=== PATIENT | female | born 1965 | race American Indian/Alaskan Native ===

== ENCOUNTER 2017-05-09 16:16 | Emergency (ER) | payer OTHER ==
[2017-05-09 16:39] VITALS: BP 136/79; RESP 18
--- NOTE | 2017-05-09 16:56 | C.PDOC ---
Chief Complaint (Nursing): Chest Pain Past Medical History Vital Signs: Last Vital Signs Temp 99.6 F 05/09/17 16:36 Pulse 85 05/09/17 16:36 Resp 18 05/09/17 16:36 BP 136/79 05/09/17 16:36 Pulse Ox 99 05/09/17 16:36 - Medical History PMH: Asthma, Hypercholesterolemia Family History: States: Unknown Family Hx - Social History Hx Alcohol Use: No Hx Substance Use: No ED Course And Treatment O2 Sat by Pulse Oximetry: 99 Disposition - Disposition
[2017-05-09] MEDS ORDERED: Aluminum Hydroxide/Magnesium Hydroxide Susp (30 mL) PO STA (17:11)
--- NOTE | 2017-05-09 17:11 | C.PDOC ---
History Of Present Illness 52 Y/O FEMALE PRESENTS TO ED WITH C/O NEW ONSET LEFT SIDED CHEST / EPIGASTRIC PAIN SINCE LAST NIGHT. PT REPORTS PAIN IS INTERMITTENT, WITH RADIATION OF PAIN TO THE MID-BACK. NO ASSOCIATED WITH EATING. DENIES FEVER, CHILLS, SOB, NAUSEA, VOMITING, DIZZINESS. PT STATES COULD BE DUE TO "BAD FOOD" SHE ATE RECENTLY. PT REPORTS TAKING ZANTAC AND MOTRIN LAST NIGHT W/O RELIEF. Time Seen by Provider: 05/09/17 16:51 Chief Complaint (Nursing): Chest Pain History Per: Patient History/Exam Limitations: no limitations Current Symptoms Are (Timing): Still Present Location Of Pain/Discomfort: Epigastric Radiation Of Pain To:: Back Quality Of Discomfort: "Pain" Associated Symptoms: Back Pain. denies: Fever, Nausea, Vomiting, Urinary Symptoms Recent travel outside of the [place] States: No Past Medical History Reviewed: Historical Data, Nursing Documentation, Vital Signs Vital Signs: Last Vital Signs Temp 99.6 F 05/09/17 16:36 Pulse 80 05/09/17 16:45 Resp 18 05/09/17 16:36 BP 136/79 05/09/17 16:36 Pulse Ox 99 05/09/17 18:50 - Medical History PMH: Asthma, Hypercholesterolemia Family History: States: Unknown Family Hx - Social History Hx Alcohol Use: No Hx Substance Use: No Review Of Systems Except As Marked, All Systems Reviewed And Found Negative. Constitutional: Negative for: Fever, Chills Cardiovascular: Positive for: Chest Pain. Negative for: Palpitations Respiratory: Negative for: Cough, Shortness of Breath, Wheezing Gastrointestinal: Positive for: Abdominal Pain. Negative for: Nausea, Vomiting Skin: Negative for: Rash Physical Exam - Physical Exam Appears: Non-toxic, No Acute Distress Skin: Warm, Dry, No Rash Head: Atraumatic, Normacephalic Oral Mucosa: Moist Chest: Symmetrical Cardiovascular: Rhythm Regular Respiratory: Normal Breath Sounds, No Accessory Muscle Use, No Rales, No Rhonchi , No Wheezing Gastrointestinal/Abdominal: Soft, No Tenderness, No Guarding, No Rebound Back: Normal Inspection Extremity: Normal ROM, Capillary Refill (< 2 SEC.) Neurological/Psych: Oriented x3, Normal Speech, Normal Cognition ED Course And Treatment - Laboratory Results Result Diagrams: 05/09/17 17:19 05/09/17 17:19 ECG: Interpreted By Me ECG Rhythm: Sinus Rhythm ECG Interpretation: Normal Rate From EC (BPM) O2 Sat by Pulse Oximetry: 99 (RA.) Pulse Ox Interpretation: Normal - Radiology CXR: Interpreted by Me CXR Interpretation: Yes: No Acute Disease - CT Scan/US US RUQ ABDOMEN Other Rad Studies (CT/US): Read By Radiologist, Radiology Report Reviewed CT/US Interpretation: FINDINGS: LIVER: Measures cm in length. Normal echogenicity of the liver parenchyma. No mass. No intrahepatic bile duct dilatation. GALLBLADDER: The gallbladder appears largely contracted. No cholelithiasis is related or pericholecystic fluid collection. No prominent mural thickening. No sonographic Blancas sign. COMMON BILE DUCT: Measures 3.8 mm. No stones. No dilatation. PANCREAS: The tail of the pancreas is obscured by overlying bowel gas with remainder unremarkable. RIGHT KIDNEY: Measures 9.6 x 4.2 x 4.3 cm in length. Normal echogenicity. No calculus, mass, or hydronephrosis. AORTA: Upper midportion of the abdominal aorta appears patent with the distal segment obscured by overlying bowel. IVC: Unremarkable. OTHER FINDINGS: None . IMPRESSION: Tail of the pancreas is obscured by overlying bowel gas with remainder unremarkable. No suspicious findings are identified in the remainder of the exam. Please see discussion above. Progress - Re-Evaluation Re-evaluation Note: 05/09/17 17:11 MAALOX, , PEPCID, PROTONIX ORDERED. CXR, EKG, BLOODWORK, AND ULTRASOUND ORDERED. 05/09/17 18:54 feels better nad no acute abd - Data Reviewed Data Reviewed: Lab, Diagnostic imaging, EKG, Old records Disposition Counseled Patient/Family Regarding: Studies Performed, Diagnosis, Need For Followup - Disposition Referrals: YOUR,PMD [Other] Disposition: HOME/ ROUTINE Disposition Time: 18:54 Condition: IMPROVED Instructions: Acute Abdominal Pain (ED), Gas and Bloating (ED) Forms: [facility] ([place]ish), Work Excuse - Clinical Impression Clinical Impression: Abdominal pain - Scribe Statement The provider has reviewed the documentation as recorded by the Scribe SM All medical record entries made by the Scribe were at my direction and personally dictated by me. I have reviewed the chart and agree that the record accurately reflects my personal performance of the history, physical exam, medical decision making, and the department course for this patient. I have also personally directed, reviewed, and agree with the discharge instructions and disposition.
[2017-05-09] MEDS ORDERED: Belladonna-Phenobarbital PO STA (17:12)
[2017-05-09] MEDS ORDERED: Belladonna-Phenobarbital ONE (17:21)
[2017-05-09] MEDS ORDERED: Aluminum Hydroxide/Magnesium Hydroxide Susp (30 mL) ONE (17:21)
[2017-05-09 17:24] LABS: BASO # 0.1 K/uL (0.0-0.2); EOS # 0.3 K/uL (0.0-0.7); EOS % 5.6 % (0.0-4.0); HEMATOCRIT 37.1 % (34.0-47.0); LYMPH # 1.4 K/uL (1.0-4.3); LYMPH % 25.5 % (20.0-40.0); MEAN CELL VOLUME 83.3 fL (81.0-99.0); MEAN CORPUSCULAR HEMOGLOBIN 27.2 pg (27.0-31.0); MEAN CORPUSCULAR HGB CONC 32.6 g/dL (33.0-37.0); MEAN PLATELET VOLUME 9.2 fL (7.2-11.7); MONO # 0.5 K/uL (0.0-0.8); MONO % 8.8 % (0.0-10.0); NRBC % 0.1 % (0.0-2.0); RED CELL DISTRIBUTION WIDTH 13.8 % (11.5-14.5); WHITE BLOOD COUNT 5.4 K/uL (4.8-10.8)
[2017-05-09 17:34] LABS: CHLORIDE 104 mmol/L (98-107); POTASSIUM 3.9 mmol/L (3.6-5.2); SODIUM 138 mmol/L (132-148)
[2017-05-09 17:36] LABS: AST/SGOT 21 U/L (14-36); BILIRUBIN,TOTAL 0.6 mg/dL (0.2-1.3); CARBON DIOXIDE 25 mmol/L (22-30); GFR AFRICAN-AMERICAN > 60
[2017-05-09 17:37] LABS: ALB/GLOB RATIO 1.2 (1.0-2.1); ALKALINE PHOSPHATASE 71 U/L (38-126); ALT/SGPT 31 U/L (9-52); BLOOD UREA NITROGEN 19 mg/dL (7-17); CALCIUM 8.9 mg/dl (8.6-10.4); GLUCOSE,RANDOM 81 mg/dL (65-105); TOTAL PROTEIN 7.7 g/dL (6.3-8.3)
[2017-05-09 18:12] LABS: URINE BACTERIA OCC (<OCC); URINE BILIRUBIN NEGATIVE (NEGATIVE); URINE BLOOD NEGATIVE (NEGATIVE); URINE COLOR Yellow (YELLOW); URINE GLUCOSE (UA) NORMAL (Normal); URINE KETONE NEGATIVE (NEGATIVE); URINE LEUKOCYTE ESTERASE 1+ Leu/uL (Negative); URINE PROTEIN NEGATIVE (NEGATIVE); WBC URINE 12 /hpf (0-5)
[2017-05-09 18:13] LABS: RBC URINE 3 /hpf (0-3)
--- NOTE | 2017-05-09 18:26 | US ---
HISTORY: abd pain COMPARISON: None. TECHNIQUE: Sonographic evaluation of the right upper quadrant of the abdomen. FINDINGS: LIVER: Measures cm in length. Normal echogenicity of the liver parenchyma. No mass. No intrahepatic bile duct dilatation. GALLBLADDER: The gallbladder appears largely contracted. No cholelithiasis is related or pericholecystic fluid collection. No prominent mural thickening. No sonographic Blancas sign. COMMON BILE DUCT: Measures 3.8 mm. No stones. No dilatation. PANCREAS: The tail of the pancreas is obscured by overlying bowel gas with remainder unremarkable. RIGHT KIDNEY: Measures 9.6 x 4.2 x 4.3 cm in length. Normal echogenicity. No calculus, mass, or hydronephrosis. AORTA: Upper midportion of the abdominal aorta appears patent with the distal segment obscured by overlying bowel. IVC: Unremarkable. OTHER FINDINGS: None . IMPRESSION: Tail of the pancreas is obscured by overlying bowel gas with remainder unremarkable. No suspicious findings are identified in the remainder of the exam. Please see discussion above.
--- NOTE | 2017-05-09 18:50 | RAD ---
HISTORY: abd pain COMPARISON: No prior. TECHNIQUE: Chest PA and lateral FINDINGS: LUNGS: No active pulmonary disease. PLEURA: No significant pleural effusion identified. No pneumothorax apparent. CARDIOVASCULAR: Normal. OSSEOUS STRUCTURES: Positional curvature of the thoracic spine versus dextroscoliosis. VISUALIZED UPPER ABDOMEN: Normal. OTHER FINDINGS: None. IMPRESSION: No acute cardiopulmonary is appreciable. Positional curvature of the thoracic spine versus level scoliosis.
[2017-05-09 19:03] VITALS: PULSE 88; TEMP 98.7; O2SAT 100
--- NOTE | 2017-05-10 13:37 | CARD ---
APPROVED REPORT EKG Measurement Heart [id number] <Conclusion> Normal sinus rhythm Nonspecific ST and T wave abnormality Abnormal ECG
== END 2017-05-09 19:03 | disposition home or self-care (01) ==
LOC: C.ER 16:16
DX: R10.9 Unspecified abdominal pain (principal)
CPT/HCPCS: 71020; 76705; 80053; 81001; 83690; 84484; 84703; 85025; 93005; 96374; 96375; 99285; C9113